=== PATIENT | female | born 1995 | race Two or more races ===

== ENCOUNTER 2024-05-08 15:37 | Emergency (ER) | payer MEDICAID ==
[~2024-05-08] VITALS: Ht 157.5 cm; Wt 61.3 kg
[2024-05-08 16:07] VITALS: BP 100/65; PULSE 72; RESP 16; TEMP 99.1; O2SAT 97
[2024-05-08 16:37] LABS: BASOPHILS % (AUTO) 0.4 % (0.0-2.0); EOSINOPHILS % (AUTO) 1.7 % (1.0-6.0); HEMATOCRIT 37.7 % (36-46); HEMOGLOBIN 12.5 g/dL (12.0-16.0); LYMPHOCYTES # (AUTO) 1.8 K/uL (1.0-4.8); LYMPHOCYTES % (AUTO) 29.5 % (22.0-44.0); MEAN CORPUSCULAR HEMOGLOBIN 33.8 pg (26.0-34.0); MEAN CORPUSCULAR HGB CONC 33.3 G/dL (31.0-37.0); MEAN CORPUSCULAR VOLUME 102 fL (80-100); MONOCYTES # (AUTO) 0.3 K/uL (0.1-1.0); MONOCYTES % (AUTO) 5.4 % (2.0-9.0); NEUTROPHILS # (AUTO) 3.8 K/uL (1.8-7.7); PLATELET COUNT (AUTO) 144 K/uL (150-450); RED BLOOD CELL COUNT(AUTO) 3.71 MIL/uL (4.00-5.20); RED CELL DISTRIBUTION WIDTH 13.3 % (11.5-14.5); WHITE BLOOD COUNT (AUTO) 6.1 K/uL (4.5-11.0)
[2024-05-08 16:57] LABS: ANION GAP 6 mmol/L (8-16); CALCIUM, TOTAL 8.3 mg/dL (8.8-10.5); CARBON DIOXIDE 29 mmol/L (22-29); CHLORIDE 104 mmol/L (98-107); CREATININE 0.81 mg/dL (0.60-1.30); GLOMERULAR FILTR. RATE CALC > 60 mL/min (>60); GLUCOSE,RANDOM 84 mg/dL (70-110); POTASSIUM 4.2 mmol/L (3.5-5.1); SODIUM SERUM 139 mmol/L (136-145); UREA NITROGEN, BLOOD 16 mg/dL (7-18)
[2024-05-08 17:09] LABS: APPEARANCE,URINE CLEAR (CLEAR); BILIRUBIN,URINE NEGATIVE (NEGATIVE); COLOR,URINE YELLOW (YELLOW); GLUCOSE, URINE (UA) NEGATIVE (NEGATIVE); KETONES,URINE NEGATIVE (NEGATIVE); LEUKOCYTE ESTERASE ,URINE TRACE (NEGATIVE); NITRATE,URINE NEGATIVE (NEGATIVE); OCCULT BLOOD,URINE SMALL (NEGATIVE); PROTEIN,URINE TRACE mg/dL (NEGATIVE); SPECIFIC GRAVITIY, URINE 1.032 (1.003-1.030); UROBILINOGEN,URINE <=1.0 mg/dL (<=1.0)
[2024-05-08 17:41] LABS: BACTERIA,URINE Rare /HPF (None Seen); RBC,URINE 0-2 /HPF (0-2); SQUAMOUS EPITHELIAL CELL,UR Few /LPF (None Seen); WBC,URINE 0-2 /HPF (0-5)
[2024-05-08 17:54] LABS: HCG,QUAL URINE NEGATIVE (NEGATIVE)
[2024-05-08] MEDS ORDERED: CEPH-558 PO (18:25)
[2024-05-08] MEDS ORDERED: PHEN-846 PO (18:26)
== END 2024-05-08 19:20 | disposition home or self-care (01) ==
LOC: EMS 15:37
DX: N12 Tubulo-interstitial nephritis, not specified as acute or chronic (principal); R30.0 Dysuria; R35.0 Frequency of micturition; R10.9 Unspecified abdominal pain
CPT/HCPCS: 80048; 81001; 84703; 85025; 99283

== ENCOUNTER 2024-09-25 12:38 | Emergency (ER) | payer MEDICAID ==
[~2024-09-25] VITALS: Ht 157.5 cm; Wt 65.4 kg
[~2024-09-25 12:38] MED LIST: CEPH-558 PO; PHEN-846 PO
[2024-09-25 13:03] VITALS: BP 109/70; PULSE 87; RESP 18; TEMP 98.2; O2SAT 96
[2024-09-25 13:52] LABS: COVID AG,FIA SOURCE NASAL SWAB
[2024-09-25 14:16] LABS: SARS-COV2 (COVID) ANTIGEN,FIA Negative (Negative)
[2024-09-25 14:21] LABS: INFLUENZA TYPE A NEGATIVE FOR TYPE A (NEGATIVE); INFLUENZA TYPE B NEGATIVE FOR TYPE B (NEGATIVE)
[2024-09-25] MEDS ORDERED: PENI500T2 PO (14:29)
== END 2024-09-25 15:17 | disposition home or self-care (01) ==
LOC: EMS 12:38
DX: J02.0 Streptococcal pharyngitis (principal); R06.02 Shortness of breath; Z20.822 Contact with and (suspected) exposure to COVID-19
CPT/HCPCS: 87804; 99283

== ENCOUNTER 2024-11-28 11:39 | Emergency (ER) | payer MEDICAID ==
[~2024-11-28] VITALS: Ht 160 cm; Wt 77.2 kg
[~2024-11-28 11:39] MED LIST changes: +PENI500T2 PO
[2024-11-28 11:51] VITALS: BP 111/75; PULSE 82; RESP 18; TEMP 97.9; O2SAT 96
[2024-11-28 12:17] LABS: BASOPHILS % (AUTO) 0.3 % (0.0-2.0); EOSINOPHILS % (AUTO) 1.4 % (1.0-6.0); HEMATOCRIT 39.2 % (36-46); HEMOGLOBIN 13.2 g/dL (12.0-16.0); LYMPHOCYTES # (AUTO) 1.3 K/uL (1.0-4.8); LYMPHOCYTES % (AUTO) 26.6 % (22.0-44.0); MEAN CORPUSCULAR HEMOGLOBIN 32.9 pg (26.0-34.0); MEAN CORPUSCULAR HGB CONC 33.5 G/dL (31.0-37.0); MEAN CORPUSCULAR VOLUME 98 fL (80-100); MONOCYTES # (AUTO) 0.3 K/uL (0.1-1.0); MONOCYTES % (AUTO) 6.7 % (2.0-9.0); NEUTROPHILS # (AUTO) 3.2 K/uL (1.8-7.7); PLATELET COUNT (AUTO) 139 K/uL (150-450); RED CELL DISTRIBUTION WIDTH 13.3 % (11.5-14.5)
[2024-11-28 12:37] LABS: ANION GAP 7 mmol/L (8-16); CALCIUM, TOTAL 8.3 mg/dL (8.8-10.5); CARBON DIOXIDE 30 mmol/L (22-29); CHLORIDE 103 mmol/L (98-107); CREATININE 0.94 mg/dL (0.60-1.30); GLOMERULAR FILTR. RATE CALC > 60 mL/min (>60); GLUCOSE,RANDOM 77 mg/dL (70-110); SODIUM SERUM 140 mmol/L (136-145); UREA NITROGEN, BLOOD 12 mg/dL (7-18)
[2024-11-28] MEDS ORDERED: ETHI1TAB18 PO (14:41)
[2024-11-28] MEDS ORDERED: BRIV50TA PO (14:41)
[2024-11-28] MEDS: PB/HYOSCY/ATR/SCOP/LIDO/MAALOX 55 ML BOTTLE PO ONE (15:03)
[2024-11-28] MEDS: ACETAMINOPHEN 500 MG TABLET PO ONE (15:03)
[2024-11-28] MEDS: OMEPRAZOLE 20 MG CAPSULE PO ONE (15:03)
[2024-11-28] MEDS: ONDANSETRON 4 MG TABLET PO ONE (15:03)
[2024-11-28 15:13] LABS: APPEARANCE,URINE HAZY (CLEAR); BILIRUBIN,URINE NEGATIVE (NEGATIVE); COLOR,URINE LIGHT ORANGE (YELLOW); GLUCOSE, URINE (UA) NEGATIVE (NEGATIVE); KETONES,URINE NEGATIVE (NEGATIVE); LEUKOCYTE ESTERASE ,URINE TRACE (NEGATIVE); NITRATE,URINE NEGATIVE (NEGATIVE); OCCULT BLOOD,URINE LARGE (NEGATIVE); PH,URINE 6.5 (5.0-8.0); PROTEIN,URINE 30-70 mg/dL (NEGATIVE); SPECIFIC GRAVITIY, URINE 1.026 (1.003-1.030); UROBILINOGEN,URINE <=1.0 mg/dL (<=1.0)
[2024-11-28 15:22] LABS: HCG,QUAL URINE NEGATIVE (NEGATIVE)
[2024-11-28 15:31] LABS: BACTERIA,URINE Few /HPF (None Seen); RBC,URINE 51-100 /HPF (0-2); SQUAMOUS EPITHELIAL CELL,UR Few /LPF (None Seen)
[2024-11-28] MEDS ORDERED: MAG30ORA11 PO (16:32)
[2024-11-28] MEDS ORDERED: OMEP-148 PO (16:32)
[2024-11-28] MEDS ORDERED: ACET-66 PO (16:32)
== END 2024-11-28 16:47 | disposition home or self-care (01) ==
LOC: EMS 11:42
DX: K29.00 Acute gastritis without bleeding (principal); R10.13 Epigastric pain; N94.6 Dysmenorrhea, unspecified; D82.1 Di George's syndrome; Z98.890 Other specified postprocedural states; Z79.899 Other long term (current) drug therapy
CPT/HCPCS: 99284; 76700; 80048; 81001; 83690; 84703; 85025; 36415; 76856; Q0162

== ENCOUNTER 2025-02-05 16:51 | Emergency (ER) | payer MEDICAID ==
[~2025-02-05] VITALS: Ht 160 cm; Wt 68.0 kg
[~2025-02-05 16:51] MED LIST changes: +ACET-66 PO; +BRIV50TA PO; -CEPH-558 PO; +ETHI1TAB18 PO; +MAG30ORA11 PO; +OMEP-148 PO; -PHEN-846 PO; +POLY17PO62 PO
[2025-02-05 18:09] LABS: APPEARANCE,URINE CLEAR (CLEAR); GLUCOSE, URINE (UA) NEGATIVE (NEGATIVE); LEUKOCYTE ESTERASE ,URINE NEGATIVE (NEGATIVE); NITRATE,URINE NEGATIVE (NEGATIVE); OCCULT BLOOD,URINE NEGATIVE (NEGATIVE); SPECIFIC GRAVITIY, URINE 1.025 (1.003-1.030)
[2025-02-05 18:34] LABS: PLATELET COUNT (AUTO) 137 K/uL (150-450); RED BLOOD CELL COUNT(AUTO) 4.01 MIL/uL (4.00-5.20); RED CELL DISTRIBUTION WIDTH 13.2 % (11.5-14.5); WHITE BLOOD COUNT (AUTO) 8.5 K/uL (4.5-11.0)
[2025-02-05 18:42] LABS: CALCIUM, TOTAL 8.2 mg/dL (8.8-10.5); CREATININE 0.73 mg/dL (0.60-1.30); GLOMERULAR FILTR. RATE CALC > 60 mL/min (>60); GLUCOSE,RANDOM 99 mg/dL (70-110); SODIUM SERUM 140 mmol/L (136-145); UREA NITROGEN, BLOOD 10 mg/dL (7-18)
[2025-02-05] MEDS: MORPHINE SULFATE 4 MG/ML SYRINGE IVP ONE (22:01)
[2025-02-05] MEDS: SODIUM CHLORIDE 0.9% 1,000 ML IV ONE (22:05)
[2025-02-05] MEDS: KETOROLAC TROMETHAMINE 30 MG/ML VIAL IVP ONE (22:05)
[2025-02-05] MEDS: ONDANSETRON HCL 4 MG/2 ML VIAL IVP ONE (22:05)
[2025-02-05 22:06] LABS: ASPARTATE AMINOTRANSFERASE 18.0 U/L (15-37); TOTAL PROTEIN, SERUM 7.3 g/dL (6.4-8.2)
[2025-02-06 00:15] VITALS: BP 115/81; PULSE 77; RESP 16; O2SAT 99
[2025-02-06] MEDS ORDERED: IBUP-2492 PO (00:23)
== END 2025-02-06 00:40 | disposition home or self-care (01) ==
LOC: EMS 16:51
DX: N83.202 Unspecified ovarian cyst, left side (principal); R10.32 Left lower quadrant pain; R11.0 Nausea; R30.0 Dysuria; Z79.899 Other long term (current) drug therapy
CPT/HCPCS: 99285; 76700; 96374; 96361; 96375; 80048; 80076; 81003; 83690; 84703; 85025; 36415; 76856; J1885; J2270; J2405; J7030

== ENCOUNTER 2025-06-05 12:56 | Emergency (ER) | payer MEDICAID ==
[~2025-06-05] VITALS: Ht 160 cm; Wt 68.0 kg
[~2025-06-05 12:56] MED LIST changes: +IBUP-2492 PO
[2025-06-05 13:18] VITALS: BP 101/64; PULSE 79; RESP 18; TEMP 98.8; O2SAT 99
[2025-06-05] MEDS: PROPARACAINE HCL 0.5% 15 ML OPHTHALMIC SOLUTION OU ONE (14:24)
[2025-06-05] MEDS: FLUORESCEIN SODIUM 1 MG STRIP OU ONE (14:24)
[2025-06-05] MEDS: ERYTHROMYCIN 0.5% 3.5 GM TUBE OPHTHALMIC OINTMENT OU ONE (15:20)
[2025-06-05] MEDS ORDERED: ERYT3.5O8 OU (20:13)
== END 2025-06-05 15:23 | disposition home or self-care (01) ==
LOC: EMS 13:05
DX: H10.89 Other conjunctivitis (principal); H57.89 Other specified disorders of eye and adnexa; Z79.899 Other long term (current) drug therapy
CPT/HCPCS: 99283